=== PATIENT | female | born 1940 | race American Indian/Alaskan Native ===

== ENCOUNTER 2017-03-31 06:38 | Emergency (ER) | payer MEDICARE ==
[2017-03-31 06:51] VITALS: TEMP 98.2
--- NOTE | 2017-03-31 08:04 | ED PDOC ---
Arrival/HPI - General Historian: Patient - History of Present Illness Symptom Onset: Gradual Symptom Course: Unchanged - General Chief Complaint: Dizziness/Lightheaded Time Seen by Provider: 03/31/17 07:27 - History of Present Illness Narrative History of Present Illness (Text): 03/31/17 07:50 A 76 year old female, whose past medical history includes hypertension, presents to the emergency department complaining of dizziness with associated headache. Patient reports she had difficulty getting around her home and went up to her neighbor's instead. She states dizziness occurred when ambulating. Patient notes symptoms have never occurred before. Patient denies of any abdominal pain, chest pain, shortness of breath, appetite changes, vision changes, speech changes, hearing problems, nasal congestion, rhinorrhea, or any other complaints. Also, patient mentions she takes medication for memory and urinary frequency. Currently not experiencing headache. Additionally, patient is uncertain of any history of CAD or CVA. PMD: Dr. Us (Ramesh Simons) Past Medical History - Provider Review Nursing Documentation Reviewed: Yes - Infectious Disease Hx of Infectious Diseases: None - Cardiac Hx Hypertension: Yes - Neurological Hx Dementia: Yes - Psychiatric Hx Substance Use: No - Anesthesia Hx Anesthesia: No Hx Anesthesia Reactions: No Hx Malignant Hyperthermia: No Family/Social History - Physician Review Nursing Documentation Reviewed: Yes Family/Social History: No Known Family HX Smoking Status: Current Some Days Smoker Hx Alcohol Use: No Hx Substance Use: No Allergies/Home Meds Allergies/Adverse Reactions: Allergies No Known Allergies Allergy (Verified 03/31/17 06:50) Home Medications: Home Meds Medication Instructions Recorded Confirmed Unobtainable 03/31/17 03/31/17 Review of Systems - Review of Systems Constitutional: Normal Eyes: Normal ENT: Normal Respiratory: Normal Cardiovascular: Normal Gastrointestinal: Normal Genitourinary Female: Normal Musculoskeletal: Normal Skin: Normal Neurological: Dizziness Endocrine: Normal Hemo/Lymphatic: Normal Psychiatric: Normal Physical Exam Vital Signs Reviewed: Yes Temperature: Afebrile Blood Pressure: Hypertensive Pulse: Regular Respiratory Rate: Normal Appearance: Positive for: Well-Appearing Pain Distress: None Mental Status: Positive for: Alert and Oriented X 3 - Systems Exam Head: Present: Atraumatic, Normocephalic Pupils: Present: PERRL Extroacular Muscles: Present: Other (left eye deviates to left side at baseline) Conjunctiva: Present: Normal Mouth: Present: Moist Mucous Membranes Neck: Present: Normal Range of Motion Respiratory/Chest: Present: Clear to Auscultation, Good Air Exchange. No: Respiratory Distress, Accessory Muscle Use Cardiovascular: Present: Regular Rate and Rhythm, Normal S1, S2. No: Murmurs Abdomen: Present: Normal Bowel Sounds. No: Tenderness, Distention, Peritoneal Signs Back: Present: Normal Inspection Upper Extremity: Present: Normal Inspection. No: Cyanosis, Edema Lower Extremity: Present: Normal Inspection. No: Edema Neurological: Present: GCS=15, CN II-XII Intact, Speech Normal Skin: Present: Warm, Dry, Normal Color. No: Rashes Psychiatric: Present: Alert, Oriented x 3, Normal Insight, Normal Concentration Vital Signs Temp Pulse Resp BP Pulse Ox 03/31/17 06:46 98.2 F 69 16 174/99 H 99 Medical Decision Making ED Course and Treatment: 03/31/17 07:55 Impression: 76 year old female with dizziness with associated headache. Physical exam shows left eye deviates to left side at baseline; otherwise no acute findings on examination. Differential Diagnosis included but are not limited to: Vertigo secondary to Electrolyte Abnormality vs. Benign Positional Vertigo vs Arrythmia Plan: -- EKG -- Labs -- Reassess and disposition Progress Notes: 03/31/17 09:00 Daughter is now at baseline. Patient continues to not have dizziness. Signed out to Dr. Rendon to f/u labs, EKG, reevaluate and disposition. (Ramesh Simons) - Lab Interpretations Lab Results: 03/31/17 09:00 03/31/17 09:00 Lab Results 03/31/17 10:40: Urine Color Yellow, Urine Appearance Sl cloudy, Urine pH 6.0, Ur Specific [place] 1.020, Urine Protein 30 H, Urine Glucose (UA) Negative, Urine Ketones Negative, Urine Blood Moderate H, Urine Nitrate Negative, Urine Bilirubin Negative, Urine Urobilinogen 0.2, Ur Leukocyte Esterase Negative, Urine RBC Pending, Urine WBC Pending 03/31/17 09:00: Sodium 144, Potassium 4.3, Chloride 104, Carbon Dioxide 31, Anion Gap 13, BUN 17, Creatinine 1.0, Est GFR ( Amer) > 60, Est GFR (Non- Af Amer) 54, Random Glucose 88, Calcium 9.8, Magnesium 2.0 03/31/17 09:00: WBC 7.9, RBC 3.59, Hgb 10.2 L, Hct 31.5 L, MCV 87.7, MCH 28.4, MCHC 32.4, RDW 16.3 H, Plt Count 242, MPV 10.5, Gran % 73.2 H, Lymph % (Auto) 16.7 L, [place] % (Auto) 9.3 H, Eos % (Auto) 0.5 L, Baso % (Auto) 0.3, Gran # 5.76 , Lymph # 1.3, [place] # 0.7 H, Eos # 0.0, Baso # 0.02 03/31/17 08:41: POC Glucose (mg/dL) 99 - Scribe Statement The provider has reviewed the documentation as recorded by the Scribe - Scribe Statement Zhou Rocha Provider Scribe Attestation: All medical record entries made by the Scribe were at my direction and personally dictated by me. I have reviewed the chart and agree that the record accurately reflects my personal performance of the history, physical exam, medical decision making, and the department course for this patient. I have also personally directed, reviewed, and agree with the discharge instructions and disposition. (Ramseh Simons) Disposition/Present on Arrival - Present on Arrival Any Indicators Present on Arrival: No History of DVT/PE: No History of Uncontrolled Diabetes: No Urinary Catheter: No History of Decub. Ulcer: No History Surgical Site Infection Following: None - Disposition Have Diagnosis and Disposition been Completed?: No Disposition Time: 09:00 - Disposition Diagnosis: Dizziness Condition: GOOD Referrals: Evelin Ross MD [Primary Care Provider] - Follow up with primary Forms: [employer] (Khmer)
[2017-03-31 09:15] LABS: BASO # 0.02 K/mm3 (0.0-2.0); BASO % 0.3 % (0.0-3.0); EOS % 0.5 % (1.5-5.0); GRAN # 5.76 (1.4-6.5); GRAN % 73.2 % (50.0-68.0); HEMATOCRIT 31.5 % (36.0-48.0); LYMPH # 1.3 (1.2-3.4); LYMPH % 16.7 % (22.0-35.0); MEAN CELL VOLUME 87.7 fl (80.0-105.0); MEAN CORPUSCULAR HEMOGLOBIN 28.4 pg (25.0-35.0); MEAN CORPUSCULAR HGB CONC 32.4 g/dl (31.0-37.0); MEAN PLATELET VOLUME 10.5 fl (7.0-11.0); MONO # 0.7 (0.1-0.6); MONO % 9.3 % (1.0-6.0); RED CELL DISTRIBUTION WIDTH 16.3 % (11.5-14.5); WHITE BLOOD COUNT 7.9 10^3/ul (4.5-11.0)
[2017-03-31 09:26] LABS: BLOOD UREA NITROGEN 17 mg/dL (7-21); CALCIUM 9.8 mg/dL (8.4-10.5); CARBON DIOXIDE 31 mmol/L (21-33); CHLORIDE 104 mmol/L (98-107); GFR AFRICAN-AMERICAN > 60; GLUCOSE,RANDOM 88 mg/dL (70-110); POTASSIUM 4.3 mmol/L (3.6-5.0); SODIUM 144 mmol/L (132-148)
--- NOTE | 2017-03-31 09:49 | ED PDOC ---
Physical Exam Vital Signs Reviewed: Yes Vital Signs Temp Pulse Resp BP Pulse Ox 03/31/17 12:00 98.2 F 76 18 139/87 97 03/31/17 09:00 86 18 138/81 97 03/31/17 06:46 98.2 F 69 16 174/99 H 99 Temperature: Afebrile Blood Pressure: Hypertensive Pulse: Regular Respiratory Rate: Normal Appearance: Positive for: Well-Appearing Pain Distress: None Mental Status: Positive for: Alert and Oriented X 3 Medical Decision Making ED Course and Treatment: 03/31/17 09:01 Patient transferred to id by Dr. Simons. Awaiting lab results and EKG, reevaluation and disposition. 03/31/2017 for 09:35 EKG: Ordered, reviewed, and independently interpreted the EKG. Rate : 75 BPM Rhythm : NSR Interpretation : No ST-segment elevations or depressions, T-wave abnormality, left ventricular hypertrophy. Comparison : No previous EKG for comparison. - Lab Interpretations Lab Results: 03/31/17 09:00 03/31/17 09:00 Lab Results 03/31/17 10:40: Urine Color Yellow, Urine Appearance Sl cloudy, Urine pH 6.0, Ur Specific [place] 1.020, Urine Protein 30 H, Urine Glucose (UA) Negative, Urine Ketones Negative, Urine Blood Moderate H, Urine Nitrate Negative, Urine Bilirubin Negative, Urine Urobilinogen 0.2, Ur Leukocyte Esterase Negative, Urine RBC 10 - 15, Urine WBC 0 - 2, Ur Epithelial Cells 3 - 4, Urine Bacteria Few 03/31/17 09:00: Sodium 144, Potassium 4.3, Chloride 104, Carbon Dioxide 31, Anion Gap 13, BUN 17, Creatinine 1.0, Est GFR ( Amer) > 60, Est GFR (Non- Af Amer) 54, Random Glucose 88, Calcium 9.8, Magnesium 2.0 03/31/17 09:00: WBC 7.9, RBC 3.59, Hgb 10.2 L, Hct 31.5 L, MCV 87.7, MCH 28.4, MCHC 32.4, RDW 16.3 H, Plt Count 242, MPV 10.5, Gran % 73.2 H, Lymph % (Auto) 16.7 L, [place] % (Auto) 9.3 H, Eos % (Auto) 0.5 L, Baso % (Auto) 0.3, Gran # 5.76 , Lymph # 1.3, [place] # 0.7 H, Eos # 0.0, Baso # 0.02 03/31/17 08:41: POC Glucose (mg/dL) 99 I have reviewed the lab results: Yes - Scribe Statement The provider has reviewed the documentation as recorded by the Jim Rocha Provider Scribe Attestation: All medical record entries made by the Scribe were at my direction and personally dictated by me. I have reviewed the chart and agree that the record accurately reflects my personal performance of the history, physical exam, medical decision making, and the department course for this patient. I have also personally directed, reviewed, and agree with the discharge instructions and disposition. Disposition/Present on Arrival - Present on Arrival Any Indicators Present on Arrival: No History of DVT/PE: No History of Uncontrolled Diabetes: No Urinary Catheter: No History of Decub. Ulcer: No History Surgical Site Infection Following: None - Disposition Have Diagnosis and Disposition been Completed?: No Diagnosis: Dizziness, UTI (urinary tract infection) Disposition: HOME/ ROUTINE Disposition Time: 11:00 Condition: IMPROVED Discharge Instructions (ExitCare): Urinary Tract Infection in Women (ED) Additional Instructions: Thank you for letting us take care of you today. The emergency medical care you received today was directed at your acute symptoms. If you were prescribed any medication, please fill it and take as directed. It may take several days for your symptoms to resolve. Return to the Emergency Department if your symptoms worsen, do not improve, or if you have any other problems. Please contact your doctor or call one of the physicians/clinics you have been referred to that are listed on the Patient Visit Information form that is included in your discharge packet. Bring any paperwork you were given at discharge with you along with any medications you are taking to your follow up visit. Our treatment cannot replace ongoing medical care by a primary care provider (PCP) outside of the emergency department. Thank you for allowing the [facility] team to be part of your care today. Follow up with your doctor in 1-2 days for re-evaluation and further management. Prescriptions: Nitrofurantoin Macrocrystals [Macrobid] 100 mg PO BID #10 cap Referrals: Evelin Ross MD [Primary Care Provider] - Follow up with primary Forms: [employer] (Russian)
[2017-03-31 10:45] LABS: URINE BILIRUBIN NEGATIVE (NEGATIVE); URINE BLOOD MODERATE (NEGATIVE); URINE GLUCOSE (UA) NEGATIVE (NEGATIVE); URINE KETONE NEGATIVE (NEGATIVE); URINE LEUKOCYTE ESTERASE NEGATIVE Leu/uL (NEGATIVE); URINE PROTEIN 30 mg/dL (<30 mg/dL); URINE UROBILINOGEN 0.2 E.U./dL (<1 E.U./dL)
[2017-03-31 10:54] LABS: URINE APPEARANCE SL CLOUDY (CLEAR); URINE COLOR YELLOW (YELLOW)
[2017-03-31 11:16] LABS: URINE BACTERIA FEW (NEG); URINE WBC 0 - 2 /hpf (0-6)
[2017-03-31 13:04] VITALS: BP 139/87; PULSE 76; RESP 18; O2SAT 97
--- NOTE | 2017-03-31 23:40 | CARD ---
APPROVED REPORT EKG Measurement Heart [id number] <Conclusion> Normal sinus rhythm Voltage criteria for left ventricular hypertrophy T wave abnormality, consider lateral ischemia Prolonged QT Abnormal ECG
== END 2017-03-31 12:15 | disposition home or self-care (01) ==
LOC: ED 06:38
DX: N39.0 Urinary tract infection, site not specified (principal); R42 Dizziness and giddiness; I10 Essential (primary) hypertension